=== PATIENT | male | born 1995 | race Caucasian/White ===

== ENCOUNTER 2019-10-11 02:51 | Emergency (ER) | payer MEDICAID ==
[2019-10-11] MEDS ORDERED: LIDOCAINE 1% INJ-PF (10 MG/ML) 30 ML SDV INJ ONE (03:44)
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
--- NOTE | 2019-10-11 04:58 | RADIOLOGY REPORT (SQ) ---
EXAM DESCRIPTION: XR FOOT 3 OR MORE VIEWS COMPLETED DATE/TME: 10/11/2019 03:43 CLINICAL HISTORY: 24 years, Male, pain and injury COMPARISON: None. NUMBER OF VIEWS: 3 TECHNIQUE: 3 views right foot LIMITATIONS: None. FINDINGS: Negative for acute fracture or dislocation. Soft tissues are unremarkable. Joint spaces are preserved IMPRESSION: Negative exam copyright 2011 [employer]- All Rights Reserved
[2019-10-11] MEDS ORDERED: CEPHALEXIN 500 MG CAPSULE PO ONE (05:45)
[2019-10-11 05:58] VITALS: BP 107/68
== END 2019-10-11 05:56 | disposition home or self-care (01) ==
LOC: ER 02:51
PROC: 0HQKXZZ Repair Right Lower Leg Skin, External Approach (ICD-10-PCS; principal; 2019-10-11)
DX: S09.90XA Unspecified injury of head, initial encounter (principal); S81.011A Laceration without foreign body, right knee, initial encounter; S90.31XA Contusion of right foot, initial encounter; S90.32XA Contusion of left foot, initial encounter; Y04.0XXA Assault by unarmed brawl or fight, initial encounter; Y92.009 Unspecified place in unspecified non-institutional (private) residence as the place of occurrence of the external cause; F17.210 Nicotine dependence, cigarettes, uncomplicated
CPT/HCPCS: 99284; 73630; 70450; 12002; J3490